=== PATIENT | male | born 1960 | race Caucasian/White ===

== ENCOUNTER → 2020-05-18 12:35 | Outpatient (CLI) | payer SELFPAY ==
--- NOTE | 2020-05-18 12:38 | CT_ITS ---
STUDY: CARDIAC CALCIUM SCORING - CT CHEST REASON FOR EXAM: Male, 59 years old. SCREENING RADIATION DOSAGE (If Supplied By Facility): CTDIvol = ( 112.19 ) mGy, DLP = ( 195.04 ) mGycm TECHNIQUE: Axial non-enhanced images were acquired through the heart for the sole purpose of measuring coronary artery calcium. Individualized dose optimization techniques were used for this CT. COMPARISON: None. FINDINGS: Please see the patient''s medical record for a personalized calcium score. There is a 5 mm nodule in the right middle lobe (image 24 series 3). The visualized lungs are otherwise clear. The visualized soft tissues are within normal limits. CT/Limited Chest CT w/CCTA IMPRESSION: Please see the patient''s medical record for a personalized calcium score. 5 mm nodule in the right lung. A dedicated chest CT is recommended. Please go to: [email or web address] , for a description of the calculator. Electronically Signed: Parrish Palmer, at 14:02 EDT Tel , Service support ,
[2020-05-18 12:46] VITALS: BP 132/84; PULSE 55; RESP 16; O2SAT 98; BMI 26.6
--- NOTE | 2020-05-18 13:54 | CA.SCORE ---
Calcium Scoring Date of Study:: 05/18/20 Coronary Calcium Scoring: High-resolution Computed Tomographic imaging of the chest was performed on [ ], with particular attention paid to the coronary arteries. Images from the examination were analyzed for the presence and extent of coronary artery calcification , using coronary calcium quantification software. The patient tolerated the procedure well and there were no complications. The results of the coronary calcification analysis are provided below. - Findings Left Main (LM): 0 Left Anterior Descending (LAD): 0 Left Circumflex (LCX): 0 Right Coronary Artery (RCA): 0 Total Agatston Score: 0 Calcium Scoring Interpretation: 0 No identifiable atherosclerotic plaque. Very low cardiovascular disease risk. <5% chance of presence coronary artery disease A Negative Examination 1-10 Minimal Plaque burden. Significant coronary artery disease very unlikely. 11-100 Mild plaque burden. Likely mild or minimal coronary atherosclerosis. 101-400 Moderate plaque burden Moderate non-obstructive coronary artery disease highly likely. Over 400 Extensive plaque burden. High likelihood of at least one significant coronary stenosis (>50% diameter) Calcium Score: 0 Negative Examination - A full evaluation of cardiac risk should include an assessment of all conventional risk factors and the scores and percentile rankings reported herein should be evaluated in this context.
== END ==
PROVIDERS: PCP Internal Medicine; Referring Provider Internal Medicine; Visit Provider Internal Medicine
DX: E78.5 Hyperlipidemia, unspecified (principal); I10 Essential (primary) hypertension
CPT/HCPCS: 75571; 76380

== ENCOUNTER 2024-03-24 10:00 | Outpatient (RCR) | payer OTHER, SELFPAY ==
--- NOTE | 2024-01-29 10:38 | HP.PTEVAL ---
Patient's Visit Information Visit Information Visit Information: ARELI RÍOS is a 63 year old M referred to Physical Therapy by Dr. Luisa Fitzpatrick DO with a diagnosis of CERVICAL RADIC - M. SPASMS NECK. Date of Evaluation: 01/29/24 Physical Therapist: Sarah Ron PT, Cert MDT Visit Plan Frequency: 2-3x /Week Duration: 4-6 Weeks Plan: Scapular Strengthening and B Pec/UT/Levator/Scalene Stretching to help reduce stress on Cervical Spine with Daily Activities. STM to B neck musculature. E-stim with MH. US at 1.3 W/CM2 100% to R Neck Musculature in Sitting. Instruction in Proper Posture Control, Ergonomics with ADL's and Appropriate Activity Modifications. HEP Instructions. 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 SOME REPETATIVE LIFTING. A LOT OF REACHING AND BENDING. NOT CURRENTLY OFF WORK. Disability: NO. Present symptoms: L NECK PAIN. L SHLD BLADE PAIN. DENIES VIRAJ UE PAIN, NUMBNESS AND TINGLING. DENIES VIRAJ UE WEAKNESS. Present since: ABOUT 6 WKS AGO. Pain Scale: Worst - 4/10 Least - 1/10 Currently: /10 Commenced as a result of: NO APPARENT REASON. WOKE UP WITH IT. Symptoms at onset: L NECK PAIN. Worse: TURNING HEAD TO THE LEFT. Better: STRETCHING HELPS THE TIGHTNESS BUT THE PAIN IS STILL THERE. IBUPROFEN - MAYBE A LITTLE Disturbed sleep: NO Previous history/Previous treatment: HISTORY OF NECK PROBLEMS - ONCE GOT SO BAD COULDN'T EVEN WORK. A LOT OF MUSCLE SPASMES. A LOT OF MUSCLE SPASMS AND TIGHTNESS IN BODY IN GENERAL. 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 This episode: TRIED M. RELAXERS - PATIENT REPORTS IT DIDN'T HELP. ALSO PRESCRIBED MELOXICAM WITHOUT MUCH BENEFIT AND NO LONGER TAKING. ALSO SEEING A NEUROMUSCULAR THERAPIST - ROXANNE DOMINGUEZ AND HE HAS SEEN HER X 1 WITH SOME LASTING BENEFIT. Dizziness: NO Tinnitus: NO Nausea: NO Shortness of Breath: NO Difficulty Swollowing: NO Gait: NORMAL Accidents: NO Unexplained weight loss: NO Imaging: NO PMH/Recent major surgery: HTN, HIGH CHOLESTEROL, NIDDM Objective Objective: Sitting Posture/Standing Posture: R TORTICOLLIS. FH. RSH'S. Active Correction of posture: INCREASES L NECK PAIN. Other Observations: INDEP GAIT AND TRANSFERS Sensory deficit: VIRAJ UE LIGHT TOUCH SENSATION GROSSLY INTACT AND SYMMETRICAL ROM deficit: VIRAJ UE'S WFL Motor deficit: VIRAJ UE'S GROSSLY 5/5. PATIENT IS R HAND DOMINANT. 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 Dural Signs: NEGATIVE VIRAJ UE'S. Cervical Mvmt Loss: Flex: MIN Pro: NIL Ext: MOD - DEVIATES TO THE R Ret: RIOS - INCREASE - W RSB: MOD - NE LSB: RIOS - IINCREASE - W R Rot: MIN - NE L Rot: MOD - INCREASE - W Postural strength: POOR. CERVICAL DISTRACTION TESTING: NE Palpation: INCREASED VIRAJ CERVICAL AND PERISCAPULAR MUSCLE TONE. NO ACUTE NECK OR SHLD TENDERNESS. TREATMENT: NEUROMUSCULAR REEDUCATION - INTRO TO RETRAINING OF MVMT AND POSTURE FOR SITTING, LYING AND STANDING ACTIVITIES. Balance/Special Test Scores Oswestry Neck Score: 9 Goals Goal 1:: DECREASE C/O L NECK/SHLD PAIN BY AT LEAST 50 % TO EASE ADL'S. Goal Time Frame: 4-6 Weeks Goal 2:: IMPROVE PAINFREE NECK ROM TO EASE ADL'S. Goal Time Frame: 4-6 Weeks Goal 3:: PATIENT WILL DEMONSTRATE GOOD POSTURE CONTROL THROUGHOUT PT SESSION WITHOUT C/O INCREASED PAIN Goal Time Frame: 4-6 Weeks Goal 4:: INDEP HEP Goal Time Frame: 4-6 Weeks Rehabilitation Potential Physical Therapy Diagnosis: POSTUREAL WEAKNESS AND STIFFNESS. NECK STIFFNESS AND C/O L NECK/SHLD PAIN. Rehabilitation Potential: Good Anticipated Interventions Patient/Client Instruction: Educate patient on: Condition, Plan of Care and Risk Factors For the Purpose of:: To improve self management Therapeutic Exercise to Include: Strength training, Body mechanics, Postural training, Flexibilty training, Neuromotor development and Scapular Strength/Stabilization For the Purpose of:: To decrease pain, To increase ROM, To improve muscle performance and motor function, To increase tolerance to activity/condition/position, To improve ability of physical actions for home/community/work/leisure and To increase flexibility/ROM Manual Therapy Techniques to Include: Trigger point massage, Mobilization and Soft tissue mobilization For the Purpose of:: To decrease pain, To increase ROM, To improve nutrient delivery to tissue and To decrease soft tissue restriction TENS: Yes IF ES: Yes Cryotherapy (ice pack, ice massage): Yes Thermo therapy (hot pack): Yes Ultrasound (thermal/non thermal): Yes For the Purpose of:: To decrease pain and To improve nutrient delivery to tissue Text: Thank you for the opportunity to evaluate your patient. For Medicare and Medicare HMO plans, please review the plan of care and approve it. It will need to be FAXED BACK to us at [phone] for Medicare purposes. For Medicare only, by signing this I certify the plan of care. Please let me know if there are questions or concerns regarding this plan of care. Physician Signature: Date:
--- NOTE | 2024-02-19 12:54 | HP.PTREVAL ---
Re-Evaluation Intro: Dr. Luisa Fitzpatrick, DO, It has been my pleasure to treat ARELI RÍOS over the last 10 visits for CERVICAL RADIC - M. SPASMS NECK. Please see the progress note below for an update on the physical therapy plan of care! Subjective Subjective: PATIENT STATES HIS NECK HAS MORE MOBILITY FOR THE MOST PART AND THE PAIN HAS REDUCED QUITE A BIT SINCE STARTING PT. PATIENT REPORTS HE STILL HAS THE CONSTANT CHRONIC STIFFNESS THAT HE HAS BEEN DEALING WITH SINCE THE 'S. INCREASED PAIN AT THE BEGINNING OF THE WEEK WITH INCREASED DEMANDS AT WORK MENTALLY AND PHYSICALLY. PATIENT REPORTS INCREASING TIGHTNESS IN HIS BACK AND LEGS TOO SIMILAR TO WHAT HE HAD 15 YEARS AGO BUT NOT BAD IT WAS THEN. REPORTS HE STILL HAS PAIN WHEN HE TURNS HIS HEAD TO THE LEFT BUT IT SEEMS TO BE IMPROVING WITH THERAPY. REPORTS THE HOME THERABAND EX'S ARE GETTING EASIER. Objective Objective/Function: PATIENT WAS SEEN TODAY FOR RE-ASSESSMENT OF PROGRESS TOWARD THE SET PT GOALS AND THE NEED FOR FURTHER PHYSICAL THERAPY VS READINESS FOR DISCHARGE. CERVICAL ROM AND PAIN IMPROVING. POSTURAL STRENGTH IMPROVING. PATIENT IS A GOOD CANDIDATE FOR TRIAL OF MECHANICAL CERIVCAL TX AND PATIENT IS AGREEABLE. UPON EXAM TODAY: Sitting Posture/Standing Posture: R TORTICOLLIS HAS RESOLVED BUT PATIENT STILL WITH FH AND RSH'S. Active Correction of posture: DENIES NECK PAIN BUT REPORTS DISCOMFORT IN SHLD'S AND LOW BACK. STILL WITH POSTURAL WEAKNESS - FAIR. Other Observations: INDEP GAIT AND TRANSFERS Sensory deficit: VIRAJ UE LIGHT TOUCH SENSATION GROSSLY INTACT AND SYMMETRICAL ROM deficit: VIRAJ UE'S WFL Motor deficit: VIRAJ UE'S GROSSLY 5/5. Dural Signs: NEGATIVE VIRAJ UE'S. Cervical Mvmt Loss: Flex: MIN Pro: NIL Ext: MOD Ret: MOD TO RIOS RSB: MOD - NE LSB: MOD - INCREASE - NW R Rot: MIN - NE L Rot: MOD - INCREASE - NW MANUAL CERVICAL TX TESTING - NE BUT DIFFICULT TO GET GOOD DISTRACTION DUE TO GUARDING. Plan Plan Plan: Cont PT 2x's a wk x 5 wks adding trial of Mechanical Intermittent Cervical Tx starting with approx. 15 lbs, 45 sec on/15 sec off x 15 min. with neutral spine position as tolerated. Scapular Strengthening and B Pec/UT/Levator/Scalene Stretching to help reduce stress on Cervical Spine with Daily Activities. STM to B neck musculature. E-stim with MH. US at 1.3 W/CM2 100% to R Neck Musculature in Sitting. Instruction in Proper Posture Control, Ergonomics with ADL's and Appropriate Activity Modifications. HEP Instructions. Balance/Gait/Functional tests Balance/Special Test Scores Oswestry Neck Score: 8 Goals Goals Goal 1:: DECREASE C/O L NECK/SHLD PAIN BY AT LEAST 50 % TO EASE ADL'S. Goal Time Frame: 4-6 Weeks Goal Progress: Progressing Goal 2:: IMPROVE PAINFREE NECK ROM TO EASE ADL'S. Goal Time Frame: 4-6 Weeks Goal Progress: Progressing Goal 3:: PATIENT WILL DEMONSTRATE GOOD POSTURE CONTROL THROUGHOUT PT SESSION WITHOUT C/O INCREASED PAIN Goal Time Frame: 4-6 Weeks Goal Progress: Progressing Goal 4:: INDEP HEP Goal Time Frame: 4-6 Weeks Goal Progress: Progressing Anticipated Interventions Anticipated Interventions Patient/Client Instruction: Educate patient on: Condition, Plan of Care and Risk Factors For the Purpose of:: To improve self management Therapeutic Exercise to Include: Strength training, Body mechanics, Postural training, Flexibilty training, Neuromotor development and Scapular Strength/Stabilization For the Purpose of:: To decrease pain, To increase ROM, To improve muscle performance and motor function, To increase tolerance to activity/condition/position, To improve ability of physical actions for home/community/work/leisure and To increase flexibility/ROM Manual Therapy Techniques to Include: Trigger point massage, Mobilization and Soft tissue mobilization For the Purpose of:: To decrease pain, To increase ROM, To improve nutrient delivery to tissue and To decrease soft tissue restriction TENS: Yes IF ES: Yes Cryotherapy (ice pack, ice massage): Yes Thermo therapy (hot pack): Yes Ultrasound (thermal/non thermal): Yes For the Purpose of:: To decrease pain and To improve nutrient delivery to tissue Re-Evaluation Ending Re-evaluation ending: Please do not hesitate to contact me at [phone] by phone or if you have questions or concerns regarding this new plan of care! Sincerely, Sarah Ron, PT, Cert MDT
--- NOTE | 2024-03-24 10:25 | HP.PTDCSUM ---
Discharge Summary D/C summary: It has been my pleasure to treat ARELI RÍOS referred by Dr. Luisa Fitzpatrick DO, with the diagnosis of CERVICAL RADIC - M. SPASMS NECK for a total of 19 visit(s). Discharge Date: 03/24/24 Please see the following information for a summary of their discharge status. Subjective Subjective: PATIENT REPORTS HE HAS MORE MOTION IN HIS NECK WITHOUT IT HURTING. THE SORENESS ISN'T THERE LIKE IT WAS. 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 HE STATES THERAPY HAS EXCEEDING HIS EXPECTATIONS THIS TIME. Pain Left Neck: Pain Intensity (Out of 10): 1 Overall Improvement % Improvement: 95 Objective Objective/Function: PATIENT WAS SEEN TODAY FOR RE-ASSESSMENT OF PROGRESS TOWARD THE SET PT GOALS AND THE NEED FOR FURTHER PHYSICAL THERAPY VS READINESS FOR DISCHARGE. ALL PT GOALS HAVE BEEN MET AND PATIENT IS APPROPRIATE FOR AND AGREEABLE TO DISCHARGE. UPON EXAM TODAY: Sitting Posture/Standing Posture: GOOD Other Observations: INDEP GAIT AND TRANSFERS Sensory deficit: VIRAJ UE LIGHT TOUCH SENSATION GROSSLY INTACT AND SYMMETRICAL ROM deficit: VIRAJ UE'S WFL Motor deficit: VIRAJ UE'S GROSSLY 5/5. Dural Signs: NEGATIVE VIRAJ UE'S. Cervical Mvmt Loss: Flex: NIL Pro: NIL Ext: MOD Ret: MOD RSB: MIN LSB: MOD R Rot: NIL L Rot: MIN PATIENT DENIES PAIN WITH CERVICAL ROM TESTING ALL PLANES. Goals Goal 1:: DECREASE C/O L NECK/SHLD PAIN BY AT LEAST 50 % TO EASE ADL'S. Goal Progress: Goal Met Goal 2:: IMPROVE PAINFREE NECK ROM TO EASE ADL'S. Goal Progress: Goal Met Goal 3:: PATIENT WILL DEMONSTRATE GOOD POSTURE CONTROL THROUGHOUT PT SESSION WITHOUT C/O INCREASED PAIN Goal Progress: Goal Met Goal 4:: INDEP HEP Goal Progress: Goal Met Plan Plan: D/C. PATIENT AGREEABLE. D/C Information d/c sentence: If there are questions or concerns regarding this patient's physical therapy, please feel free to call me at [phone]. Thank you for the referral of this patient. Sincerely, Sarah Ron, PT, Cert MDT Balance/Gait/Functional tests Balance/Special Test Scores Oswestry Neck Score: 0 Improvement % Improvement: 95
== END 2024-03-24 10:43 | disposition home or self-care (01) ==
LOC: PT 10:00
PROVIDERS: PCP Internal Medicine; Referring Provider Internal Medicine; Visit Provider Internal Medicine
DX: M54.12 Radiculopathy, cervical region (principal); M62.838 Other muscle spasm
CPT/HCPCS: 97012; 97035; 97110; 97112; 97140; 97162; 97164